=== PATIENT | male | born 1980 | race Hispanic/Latino ===

== ENCOUNTER → 2020-05-02 | Day surgery (SDC) | payer OTHER ==
[~2020-05-02] MED LIST: ACETAMINOPHEN 1000 MG/100 ML IV ONE; DEXAMETHASONE SOD PHOS INJ 4 MG/ML VIAL ONE; FENTANYL CITRATE/PF 100MCG/2 ML INJ ONE; GLYCOPYRROLATE INJ 0.2 MG/ML VIAL ONE; LIDOCAINE 1% W/EPINEPHRINE 20 ML VIAL ONE; LIDOCAINE HCL 2% LOCAL INJ 5 ML SDV VIAL INJ ONE; MUPIROCIN 2% OINT 22 GM TUBE ONE; NEOSTIGMINE 1 MG/ML 10ML VIAL ONE; ONDANSETRON HCL INJ 2MG/ML 2ML 2 MG/ML VIAL ONE; OXYMETAZOLINE HCL 0.05% NAS 1 SPRAY BTL ONE; PROPOFOL IV EMULSION 10 MG/ML 20 ML VIAL ONE; ROCURONIUM BROMIDE 10 MG/ML 5ML VIAL IV ONE; SEVOFLURANE INHAL SOLN 250 ML PEN BTL ONE; SODIUM CHLORIDE/ALOE VERA 14.1GM NASAL GEL ONE
[2020-05-02 09:35] VITALS: BP 126/86
--- NOTE | 2020-05-02 11:03 | Operative Report ---
DATE OF PROCEDURE: 05/02/2020 SURGEON: Baudilio Navarro MD PREOPERATIVE DIAGNOSES: Nasal obstruction, deviated septum, turbinate hypertrophy. POSTOPERATIVE DIAGNOSES: Nasal obstruction, deviated septum, turbinate hypertrophy. PROCEDURES: Septoplasty, bilateral inferior turbinate reductions (submucous resection). SIGNIFICANT FINDINGS: Deviated septum to the left (90%), bilateral inferior turbinate hypertrophy. ANESTHESIA: General endotracheal tube anesthesia. ESTIMATED BLOOD LOSS: 40 mL. COMPLICATIONS: None. INDICATIONS: The patient is a 39-year-old Latin-[place] male with 25 years history of left-sided nasal obstruction, which began after suffering nasal trauma and nasal fracture at age 13. He has had no epistaxis, rhinorrhea, sinus pain or headaches, fever, or visual changes. He is a nonsmoker. He has had no previous sinus or nasal surgery. On examination, there is deviated septum to the left causing 90% obstruction, as well as bilateral inferior turbinate hypertrophy. He is scheduled for septoplasty for the treatment of deviated septum and turbinate reductions for the treatment of turbinate hypertrophy, both of which cause nasal obstruction. Risks and complications of the procedures were thoroughly discussed with the patient and they include infection, bleeding, scarring, failure to improve, need for additional operations, persistent nasal obstruction, need for further nasal surgery, septal perforation causing dryness, irritation, crusting and bleeding, inability to smell or taste, leakage of cerebrospinal fluid, chronic pain, need for blood transfusions, damage to surrounding nerves, blood vessels, and muscles, and poor external cosmetic appearance of the nose. He fully understands and gives consent. DESCRIPTION OF PROCEDURE: The patient was taken to the operating room and placed supine on the operating table, where general anesthesia was achieved through orotracheal intubation. Eyes were taped. Ancef was administered. Cottonoid pledgets soaked with Afrin were inserted into the nose bilaterally. The face was prepped and draped in the usual sterile fashion. Cottonoid pledgets were then removed. Examination with a 0- degree rigid nasal endoscope revealed the septum to be significantly deviated to the left with bilateral inferior turbinate hypertrophy. A hemitransfixion incision was made on the left-hand side with a 15 blade. Overlying mucoperichondrium was elevated off the quadrangular cartilage and deviated bony septum on the left side. The quadrangular cartilage was disarticulated from the bony septum. The deviated bony septum was taken down with [place] Crabtree double-action rongeurs. Quadrangular cartilage was left undisturbed. In this way, the quadrangular cartilage swung to the midline position. Following this, the inferior turbinates were then reduced. Injection with 1% lidocaine with 1:100,000 epinephrine was injected into the anterior portions of the inferior turbinates bilaterally. Stab incisions were then made with a 15 blade in both inferior turbinates. Tunneling of the soft tissues was then performed with [place] elevator. With the microdebrider, the submucosal tissues and the inferior aspects of the bone were then debrided. The inferior turbinates were then lateralized with a Boies elevator. Following this, the hemitransfixion incision was repaired with an interrupted 4-0 Monocryl, followed by the placement of bilateral silastic septal sheeting splints, coated with antibiotic ointment which were inserted into the nose bilaterally and held in place with through and through 2-0 silk. Merocel packs also coated with antibiotic ointment, were also inserted into the nose bilaterally and the strings were tied loosely around the columella. The patient was awakened in the operating room, extubated, and taken to recovery room in good condition. MD MAURO Hale/MILEY /[id number]
== END | disposition home or self-care (01) ==
LOC: OR 06:02
PROVIDERS: ATTEND Otolaryngology
DX: J34.89 Other specified disorders of nose and nasal sinuses (principal); J34.2 Deviated nasal septum; J34.3 Hypertrophy of nasal turbinates; E66.9 Obesity, unspecified; Z01.812 Encounter for preprocedural laboratory examination; Z01.810 Encounter for preprocedural cardiovascular examination; Z11.59 Encounter for screening for other viral diseases; Z87.81 Personal history of (healed) traumatic fracture
CPT/HCPCS: 30140; 30520; 87635; 93005; J0131; J1100; J2001; J2405; J2704; J2710; J3010